=== PATIENT | male | born 1990 | race American Indian/Alaskan Native ===

== ENCOUNTER 2017-07-16 11:17 | Emergency (ER) | payer SELFPAY ==
[2017-07-16 11:33] VITALS: BP 144/123
--- NOTE | 2017-07-16 13:17 | Emergency Department Report ---
Chief Complaint: Medical Clearance Stated Complaint: MARII Time Seen by Provider: 07/16/17 12:44 - HPI History of Present Illness: 27-year-old -Prydeinig male comes in for a few prescription for his albuterol inhaler. Patient reports he ran out of and and requesting a prescription for new inhaler. Patient currently reports no shortness of breathing or wheezing no coughing. He reports is not having any issues or complaints at this time - Exam Vital Signs: Vital Signs 07/16/17 11:30 Temperature 98.6 F Pulse Rate 61 Respiratory 16 Rate Blood Pressure 144/123 O2 Sat by Pulse 97 Oximetry Physical Exam: Patient is alert and oriented in no acute distress. Able to speak in complete sentences no retraction no shortness of breathing no tripod sitting. Lungs are clear to auscultation MSE screening note: Focused history and physical exam performed. Due to findings the following was ordered: Patient is stable with no acute distress to be discharged with follow-up to [facility] ED Disposition for MSE Clinical Impression: Medication refill Disposition: DC- TO HOME OR SELFCARE Is pt being admited?: No Does the pt Need Aspirin: No Condition: Stable Additional Instructions: Please follow-up with [facility] or your primary care for refill of your albuterol. I have listed their information below Referrals: [facility] [Primary Care Provider] - 3-5 Days [facility] [Provider Group] - 3-5 Days
== END 2017-07-16 13:17 | disposition home or self-care (01) ==
LOC: ED 11:17
DX: J45.909 Unspecified asthma, uncomplicated (principal); Z76.0 Encounter for issue of repeat prescription
CPT/HCPCS: 99281

== ENCOUNTER 2019-03-01 00:28 | Emergency (ER) | payer SELFPAY ==
[2019-03-01 00:39] VITALS: BP 137/56
[2019-03-01] MEDS ORDERED: IPRATROPIUM 0.02% NEBU 2.5 ML IH ONE ×2 (00:46→01:36)
[2019-03-01] MEDS ORDERED: predniSONE 20 MG TAB PO ONE (00:46)
[2019-03-01] MEDS ORDERED: ALBUTEROL 2.5 MG/3 ML NEBU IH ONE ×2 (00:46→01:36)
--- NOTE | 2019-03-01 00:51 | Emergency Department Report ---
HPI - General Chief Complaint: Dyspnea/Respdistress Time Seen by Provider: 03/01/19 00:42 - HPI HPI: Room 44 The patient is a 29-year-old male presenting with chief complaint of asthma exacerbation. Patient states she's been wheezing since this morning and feels like it is getting worse. Patient initially cough that is occasionally productive. Patient states this feels like an asthma exacerbation. Patient denies history of fever. Patient states he does not have an inhaler at home Location: [See above] Duration: [See above] Quality: [See above] Severity: [See above] Timing: [See above] Context: [See above] Modifying factors: [See above] Associated signs and symptoms: [see above] ED Past Medical Hx - Past Medical History Previous Medical History?: Yes Hx Asthma: Yes - Surgical History Past Surgical History?: No - Family History Family history: no significant - Social History Smoking Status: Never Smoker Substance Use Type: Alcohol (occasional) - Medications Home Medications: Home Medications Medication Instructions Recorded Confirmed Last Taken Type ALBUTEROL Inhaler (OR & NICU) 2 puff IH QID PRN #8.5 gram 03/01/19 Unknown Rx [ProAir HFA Inhaler] Prednisone [predniSONE 10 mg 10 mg PO .TAPER #1 tab.ds.pk 03/01/19 Unknown Rx (6-Day Pack, 21 Tabs)] ED Review of Systems ROS: Stated complaint: ASTHMA Other details as noted in HPI Constitutional: denies: fever Eyes: denies: eye pain ENT: denies: throat pain Respiratory: cough, shortness of breath, wheezing Cardiovascular: denies: chest pain Endocrine: no symptoms reported Gastrointestinal: denies: abdominal pain Genitourinary: denies: dysuria Musculoskeletal: denies: back pain Neurological: denies: headache Physical Exam - Physical Exam Vital Signs: Vital Signs 03/01/19 00:37 Temperature 98.0 F Pulse Rate 86 Respiratory 22 Rate Blood Pressure 137/56 O2 Sat by Pulse 100 Oximetry Physical Exam: GENERAL: The patient is well-developed well-nourished male sitting on stretcher not appearing to be in acute distress. [] HEENT: Normocephalic. Atraumatic. Extraocular motions are intact. Patient has moist mucous membranes. NECK: Supple. Trachea midline CHEST/LUNGS: Faint inspiratory wheezes. There is no respiratory distress noted. HEART/CARDIOVASCULAR: Regular. There is no tachycardia. There is no gallop rub or murmur. ABDOMEN: Abdomen is soft, nontender. Patient has normal bowel sounds. There is no abdominal distention. SKIN: There is no rash. There is no edema. There is no diaphoresis. NEURO: The patient is awake, alert, and oriented. The patient is cooperative. The patient has normal speech MUSCULOSKELETAL: There is no evidence of acute injury. ED Course Vital Signs 03/01/19 00:37 Temperature 98.0 F Pulse Rate 86 Respiratory 22 Rate Blood Pressure 137/56 O2 Sat by Pulse 100 Oximetry - Reevaluation(s) Reevaluation #1: 03/01/19 02:40 Patient resting comfortably. Patient states he feels improved. Lungs CTA bilaterally ED Medical Decision Making - Differential Diagnosis acute asthma exacerbation Critical care attestation.: If time is entered above; I have spent that time in minutes in the direct care of this critically ill patient, excluding procedure time. ED Disposition Clinical Impression: Acute asthma exacerbation Disposition: DC-01 TO HOME OR SELFCARE Is pt being admited?: No Does the pt Need Aspirin: No Condition: Stable Instructions: Asthma (ED) Additional Instructions: Return to the emergency department should you develop worsening symptoms, inability to tolerate food or liquids, high fever or any other concerns Prescriptions: Prednisone [predniSONE 10 mg (6-Day Pack, 21 Tabs)] 10 mg PO .TAPER #1 tab.ds.pk ALBUTEROL Inhaler (OR & NICU) [ProAir HFA Inhaler] 2 puff IH QID PRN #8.5 gram PRN Reason: Shortness Of Breath Referrals: [facility] [Outside] - 3-5 Days Time of Disposition: 02:40
== END 2019-03-01 02:46 | disposition home or self-care (01) ==
LOC: ED 00:28
DX: J45.21 Mild intermittent asthma with (acute) exacerbation (principal)
CPT/HCPCS: 94640; 99283; J7512; 94644